=== PATIENT | male | born 1960 | race Caucasian/White ===

== ENCOUNTER 2019-08-13 18:57 | Emergency (ER) | payer SELFPAY ==
--- NOTE | 2019-08-13 19:06 | PDOC ---
Rapid Medical Evaluation Time Seen by Provider: 08/13/19 19:00 Medical Evaluation: 08/13/19 19:00 Healthy 58-year-old male with one week of fever and cough. No travel or known COVID-19 contacts. Pertinent physical exam findings: Alert, no distress Clear lungs Afebrile SpO2 98% on RA Dispo: Home Discharge Disposition - Diagnosis Fever - Discharge Dispostion Disposition: HOME Condition at time of disposition: Stable Decision to Admit order: No - Referrals - Patient Instructions Printed Discharge Instructions: [facility] Instructions, [facility] COVID-19 Isolation Protocol Additional Instructions: Coronavirus (COVID-19): Maintaining a Safe and Effective Care Environment A safe and effective care environment is our highest priority, and [facility] have undertaken necessary steps to protect our patients and workforce as the novel coronavirus (COVID-19) situation evolves. [facility] COVID-19 Drive-Thru Site Now Open to the Public - BY APPOINTMENT ONLY How to make an appointment? Please call [phone] from 8:30 a.m. - 6 p.m. You will receive a screening, and if appropriate, youll be given an appointment. We will need your phone number and address, and your primary care physician information. What should I bring? When you come, you need your photo identification. When will I receive my results? At this time, results can take up to five days. Follow isolation precautions attached. Take Tylenol as needed for fever. Return here for difficulty breathing or any other life-threatening symptoms. Print Language: QATARI - Post Discharge Activity
[2019-08-13 19:20] VITALS: BP 109/76; PULSE 96; TEMP 98.9
== END 2019-08-13 19:21 | disposition home or self-care (01) ==
LOC: JER 18:57
DX: R50.9 Fever, unspecified (principal)
CPT/HCPCS: 99282-25